=== PATIENT | male | born 1995 | race Caucasian/White ===

== ENCOUNTER 2016-10-25 12:37 | Emergency (ER) | payer OTHER ==
[~2016-10-25] VITALS: Ht 170.1 cm; Wt 61.2 kg
[~2016-10-25 12:37] MED LIST: EPI EZ PEN0.5 MG/ML IM; PRELONE15 MG/5 ML PO
[2016-10-25] MEDS ORDERED: PREDNISONE10 MG PO (12:56)
== END 2016-10-25 13:02 | disposition home or self-care (01) ==
LOC: ED 12:37
DX: L23.9 Allergic contact dermatitis, unspecified cause (principal)